=== PATIENT | female | born 1985 | race Asian ===

== ENCOUNTER 2018-09-05 20:17 | Inpatient (IN) | payer OTHER ==
[2018-09-05 22:09] VITALS: BMI 20.5
--- NOTE | 2018-09-06 00:21 | HP ---
"COWS - Scale Resting Pulse: 1= CO 81-100 Sweatin=Flushed/Facial Moisture Restless Observation: 0= Sits Still Pupil Size: 2= Moderately Dilated (Pupils = 7 mm) Bone or Joint Aches: 0= None Runny Nose/ Eye Tearin= Runny Nose/Eyes GI Upset > 30mins: 0= None Tremor Observation: 2= Slight Tremor Visible Yawning Observation: 0= None Anxiety or Irritability: 4=Extreme Anxiety Goose Flesh Skin: 0=Smooth Skin COWS Score: 13 CIWA Score - Admission Criteria [facility] Guidelines: Admission for Medically Managed Detox: Requires at least one of the followin. CIWA greater than 12 2. Seizures within the past 24 hours 3. Delirium tremens within the past 24 hours 4. Hallucinations within the past 24 hours 5. Acute intervention needed for co occurring medical disorder 6. Acute intervention needed for co occurring psychiatric disorder 7. Severe withdrawal that cannot be handled at a lower level of care (continued vomiting, continued diarrhea, abnormal vital signs) requiring intravenous medication and/or fluids 8. Admission ROS [facility] Chief Complaint: Here w/ opiate withdrawal. Allergies/Adverse Reactions: Allergies Allergy/AdvReac Type Severity Reaction Status Date / Time No Known Allergies Allergy Verified 09/05/18 21:43 History of Present Illness: Here to detox from heroin. No prior detox history. Heroin use began at age 30. Uses intranasal. States increased to 2 bundles about 5 months ago. No Narcan Kit at home but willing to accept upon discharge. Alcohol use since age 14. Drinks 3-4 x/wk. Nicotine use began at age 23. Denies seizures or overdoses. PMHx: DM, Frequent burning w/ urination MHHx: Anxiety, insomnia. Denies depression. Denies thoughts of harming self or others. Search Terms: Pati Hand, 1985 Search Date: 09/06/2018 12:19:07 AM The Drug Utilization Report below displays all of the controlled substance prescriptions, if any, that your patient has filled in the last twelve months. The information displayed on this report is compiled from pharmacy submissions to the Department, and accurately reflects the information as submitted by the pharmacies. This report was requested by: Alissa Paul | Reference #: [id number] There are no results for the search terms that you entered. Exam Limitations: No Limitations - Ebola screening Have you traveled outside of the country in the last 21 days: No (N) Have you had contact with anyone from an Ebola affected area: No Do you have a fever: No - Review of Systems Constitutional: Diaphoresis, Changes in sleep (Difficulty falling and staying asleep - occ Xanax use.) EENT: reports: Blurred Vision, Nose Congestion Respiratory: reports: No Symptoms reported Cardiac: reports: No Symptoms Reported GI: reports: No Symptoms Reported : reports: Burning (Chronic burning w/ urination - taking cranberries.) Musculoskeletal: reports: Muscle Pain (r/t diabetes) Integumentary: reports: No Symptoms Reported Neuro: reports: Tremors Endocrine: reports: Increased Thirst, Increased Urine Hematology: reports: No Symptoms Reported Psychiatric: reports: Judgement Intact, Orientated x3, Anxious Patient History - PPD History Previous Implant?: Yes Documented Results: Negative w/proof Implanted On Prior R Admission?: Yes PPD to be Administered?: Yes - Reproductive History Patient is a Female of Child Bearing Age (11 -55 yrs old): Yes Last Menstrual Period: 08/16/18 Patient : No - Smoking Cessation Smoking history: Current every day smoker Have you smoked in the past 12 months: Yes Aproximately how many cigarettes per day: 20 Hx Chewing Tobacco Use: No Initiated information on smoking cessation: Yes 'Breaking Loose' booklet given: 09/06/18 - Substance & Tx. History Hx Alcohol Use: Yes Hx Substance Use: Yes Substance Use Type: Alcohol, Heroin Hx Substance Use Treatment: No - Substances abused Heroin Substance route: Inhalation Frequency: Daily Amount used: 2 bundles Age of first use: 30 Date of last use: 09/05/18 Alcohol Substance route: Oral Frequency: 3-6 times per week Amount used: it depends/ 4 beers/ shots whiskey Age of first use: 14 Date of last use: 09/03/18 Admission Physical Exam BHS - Vital Signs Vital Signs: Vital Signs - 24 hr 09/05/18 09/05/18 21:55 22:53 Temperature 99.4 F 99.4 F Pulse Rate 98 H 98 H Respiratory 16 16 Rate Blood Pressure 111/76 111/76 - Physical General Appearance: Yes: Appropriately Dressed, Mild Distress, Tremorous, Sweating (Increased facial mositure), Anxious HEENTM: Yes: EOMI, Normocephalic, Normal Voice, JACQUELINE (Pupils = 7 mm), Pharynx Normal Respiratory: Yes: Lungs Clear, Normal Breath Sounds, No Respiratory Distress Neck: Yes: No masses,lesions,Nodules, Supple Breast: Yes: Breast Exam Deferred Cardiology: Yes: Regular Rhythm, S1, S2 Abdominal: Yes: Non Tender, Flat, Soft, Increased Bowel Sounds Genitourinary: Yes: Within Normal Limits Back: Yes: Normal Inspection Musculoskeletal: Yes: full range of Motion, Gait Steady Extremities: Yes: Normal Capillary Refill, Tremors Neurological: Yes: metal coater II-XII NML intact, Alert, Motor Strength 5/5 Integumentary: Yes: Normal Color, Dry (Decreased skin turgor), Warm, Diaphoresis (Increased facial moisture) Lymphatic: Yes: Within Normal Limits - Diagnostic (1) Opioid dependence with withdrawal Current Visit: Yes Status: Acute (2) Diabetes Current Visit: Yes Status: Chronic Qualifiers: Diabetes mellitus type: type 1 Diabetes mellitus complication status: without complication Qualified Code(s): E10.9 - Type 1 diabetes mellitus without complications (3) Uncomplicated alcohol dependence Current Visit: Yes Status: Chronic (4) Nicotine dependence, uncomplicated Current Visit: Yes Status: Chronic Qualifiers: Nicotine product type: cigarettes Qualified Code(s): F17.210 - Nicotine dependence, cigarettes, uncomplicated (5) Burning with urination Current Visit: Yes Status: Chronic Comment: Usually takes cranberries or herbal meds Cleared for Admission S - Detox or Rehab [facility] Level of Care: Medically Managed Detox Regimen/Protocol: Methadone Breathalyzer - Breathalyzer Breathalyzer: 0 Urine Drug Screen - Test Device Lot number: [id number] Expiration date: 04/28/20 - Control Is test valid?: Yes - Results Drug screen NEGATIVE: No Urine drug screen results: FEN-Fentanyl, MOP-Opiates Inpatient Rehab Admission - Rehab Decision to Admit Inpatient rehab admission?: No"
[2018-09-06] MEDS ORDERED: MAG HYDROX/AL HYDROX/SIMETH 30 ML UNIT-DOSE CUP PO PRN (01:09)
[2018-09-06] MEDS ORDERED: MENTHOL/PHENOL 1 EACH UD MM PRN (01:09)
[2018-09-06] MEDS ORDERED: PROCHLORPERAZINE MALEATE 5 MG TABLET PO PRN (01:09)
[2018-09-06] MEDS ORDERED: IBUPROFEN 400 MG TABLET (FP) PO PRN (01:09)
[2018-09-06] MEDS ORDERED: NALOXONE HCL 0.4 MG/ML VIAL IVPUSH PRN (01:09)
[2018-09-06] MEDS ORDERED: MELATONIN 5 MG TABLETS PO PRN (01:09)
[2018-09-06] MEDS ORDERED: cloNIDine HCL 0.1 MG TABLET PO PRN (01:09)
[2018-09-06] MEDS ORDERED: P-EPHED 60MG/TRIPROLIDI 2.5MG TABLET PO PRN (01:09)
[2018-09-06] MEDS ORDERED: BISMUTH SUBSALICYLATE 524 MG/30 ML UD PO PRN (01:09)
[2018-09-06] MEDS ORDERED: NICOTINE POLACRILEX 2 MG GUM BUC PRN (01:09)
[2018-09-06] MEDS ORDERED: ACETAMINOPHEN 325 MG TABLET (FP) PO PRN ×2 (01:09)
[2018-09-06] MEDS ORDERED: guaiFENesin 200 MG/10 ML 10 ML UNIT-DOSE CUPS PO PRN (01:09)
[2018-09-06] MEDS ORDERED: MAGNESIUM HYDROX 2400MG/30ML ORAL SUSPENSION 30 ML CUP PO PRN (01:09)
[2018-09-06] MEDS ORDERED: METHOCARBAMOL 500 MG TABLET PO PRN (01:09)
[2018-09-06] MEDS ORDERED: MAGNESIUM CITRATE 300 ML BOTTLE PO PRN (01:09)
[2018-09-06] MEDS ORDERED: traZODone HCL 50 MG TABLET (FP) PO PRN (01:09)
[2018-09-06] MEDS ORDERED: METHADONE HCL 10 MG TABLET (FOR DETOX USE ONLY) PO ONE ×2 (01:15→10:00)
[2018-09-06] MEDS: diazePAM 5 MG TABLET PO PRN ×3 (02:37→17:14)
[2018-09-06] MEDS ORDERED: INSULIN SLIDING SCALE (NOVOLOG) 1 VIAL SQ ONE ×3 (07:34→17:01)
[2018-09-06] MEDS: INSULIN (NOVOLOG) ASPART 100 UNITS/ML 10ML VIAL SQ SCH ×3 (07:36→17:14)
[2018-09-06] MEDS: NICOTINE 21 MG/24 HOURS TOPICAL PATCH TD SCH (10:49)
[2018-09-06] MEDS: PRENATAL VITAMINS W/ FOLIC ACID TABLET (FP) PO SCH (10:49)
[2018-09-06] MEDS: LACTOBACILLUS ACIDOPHILUS 1 TABLET PO SCH ×3 (10:50→23:17)
--- NOTE | 2018-09-06 11:38 | PN ---
BHS COWS - Scale Resting Pulse: 0= [place] 80 or Below Sweatin=Flushed/Facial Moisture Restless Observation: 1= Difficult to Sit Still Pupil Size: 0= Normal to Room Light Bone or Joint Aches: 2= Severe Diffuse Aches Runny Nose/ Eye Tearin= Runny Nose/Eyes GI Upset > 30mins: 0= None Tremor Observation of Outstretched Hands: 2= Slight Tremor Visible Yawning Observation: 2= >3x During Session Anxiety or Irritability: 2=Irritable/Anxious Goose Flesh Skin: 0=Smooth Skin COWS Score: 13 BHS Progress Note (SOAP) Subjective: teary eyes running nose/nasal congestion sweats shakes interrupted sleep body aches irritable Objective: 09/06/18 11:37 Vital Signs Temperature 97.7 F 09/06/18 09:03 Pulse Rate 76 09/06/18 09:03 Respiratory Rate 18 09/06/18 09:03 Blood Pressure 113/77 09/06/18 09:03 O2 Sat by Pulse Oximetry (%) Laboratory Tests 09/06/18 09/06/18 00:06 06:37 POC Glucometer 137 272 labs pending aaox3 ambulating no acute distress Assessment: 09/06/18 11:37 withdrawal sx Plan: continue detox increase fluids
[2018-09-06] MEDS ORDERED: DICYCLOMINE HCL 10 MG CAPSULE PO PRN (14:50)
[2018-09-06] MEDS ORDERED: TRIMETHOBENZAMIDE HCL 200MG/2ML INJ IM PRN (14:50)
[2018-09-06] MEDS: THIAMINE HCL 100 MG TABLET (FP) PO SCH (23:03)
[2018-09-07] MEDS: diazePAM 5 MG TABLET PO PRN ×2 (00:56→22:28)
[2018-09-07] MEDS: INSULIN (NOVOLOG) ASPART 100 UNITS/ML 10ML VIAL SQ SCH ×3 (07:57→17:41)
[2018-09-07 10:12] LABS: HEMATOCRIT 49.8 % (32.4-45.2); HEMOGLOBIN 16.7 GM/dL (10.7-15.3); MCH 32.8 pg (25.7-33.7); MCHC 33.5 g/dl (32.0-36.0); MEAN PLT VOLUME 8.8 fl (7.5-11.1); PLATELET COUNT 262 K/MM3 (134-434); RBC 5.08 M/mm3 (3.60-5.2); RDW 13.4 % (11.6-15.6)
[2018-09-07 10:32] LABS: ALBUMIN 4.3 g/dl (3.4-5.0); ALK PHOS 46 U/L (45-117); ANION GAP 8 MMOL/L (8-16); BILIRUBIN,TOTAL 1.4 mg/dL (0.2-1); BLOOD UREA NITROGEN 19 mg/dL (7-18); CALCIUM 9.1 mg/dL (8.5-10.1); CHLORIDE 97 mmol/L (98-107); CO2 29 mmol/L (21-32); CREATININE 0.7 mg/dL (0.55-1.3); GLUCOSE,RANDOM 228 mg/dL (74-106); POTASSIUM 4.2 mmol/L (3.5-5.1); SGOT/AST 17 U/L (15-37); SGPT/ALT 18 U/L (13-61); SODIUM 134 mmol/L (136-145)
[2018-09-07] MEDS: PRENATAL VITAMINS W/ FOLIC ACID TABLET (FP) PO SCH (10:41)
[2018-09-07] MEDS: LACTOBACILLUS ACIDOPHILUS 1 TABLET PO SCH ×2 (10:41→22:28)
[2018-09-07] MEDS: METHADONE HCL 10 MG TABLET (FOR DETOX USE ONLY) PO ONE ×2 (10:41→12:12)
[2018-09-07] MEDS: NICOTINE 21 MG/24 HOURS TOPICAL PATCH TD SCH (10:41)
--- NOTE | 2018-09-07 11:20 | PN ---
S CIWA - CIWA Score Nausea/Vomitin-No Nausea/No Vomiting Muscle Tremors: 3 Anxiety: 3 Agitation: 4-Moderately Restless Paroxysmal Sweats: 3 Orientation: 0-Oriented Tacttile Disturbances: 0-None Auditory Disturbances: 0-None Visual Disturbances: 0-None Headache: 0-None Present CIWA-Ar Total Score: 13 BHS Progress Note (SOAP) Subjective: body aches interrupted sleep sweats tired Objective: 09/07/18 11:19 Vital Signs Temperature 97.9 F 09/07/18 09:22 Pulse Rate 83 09/07/18 09:22 Respiratory Rate 18 09/07/18 09:22 Blood Pressure 121/76 09/07/18 09:22 O2 Sat by Pulse Oximetry (%) Laboratory Tests 09/06/18 09/06/18 09/06/18 00:06 06:37 12:25 WBC RBC Hgb Hct MCV MCH MCHC RDW Plt Count MPV Sodium Potassium Chloride Carbon Dioxide Anion Gap BUN Creatinine Creat Clearance w eGFR POC Glucometer 137 272 266 Random Glucose Calcium Total Bilirubin AST ALT Alkaline Phosphatase Total Protein Albumin 09/06/18 09/07/18 09/07/18 16:24 06:09 07:00 WBC 11.0 H RBC 5.08 Hgb 16.7 H Hct 49.8 H MCV 98.0 H MCH 32.8 MCHC 33.5 RDW 13.4 Plt Count 262 MPV 8.8 Sodium Potassium Chloride Carbon Dioxide Anion Gap BUN Creatinine Creat Clearance w eGFR POC Glucometer 200 236 Random Glucose Calcium Total Bilirubin AST ALT Alkaline Phosphatase Total Protein Albumin 09/07/18 09/07/18 07:00 11:17 WBC RBC Hgb Hct MCV MCH MCHC RDW Plt Count MPV Sodium 134 L Potassium 4.2 Chloride 97 L Carbon Dioxide 29 Anion Gap 8 BUN 19 H Creatinine 0.7 Creat Clearance w eGFR 96.37 POC Glucometer 239 Random Glucose 228 H Calcium 9.1 Total Bilirubin 1.4 H AST 17 ALT 18 Alkaline Phosphatase 46 Total Protein 8.0 Albumin 4.3 aaox3 ambulating no acute distress Assessment: 09/07/18 11:20 withdrawal sx Plan: continue detox increase fluids
--- NOTE | 2018-09-07 11:25 | PN ---
[facility] Progress Note Note: pt had contraband on her person. Pt states she brought her vape inhaler,eye liner, and supervisor hide house. security, medical staff, nursing salon supervisor was made aware of the issue and approached the patient with the items. Pt states she brought it up when she came up the other day. Items removed from her room by security.
[2018-09-07] MEDS ORDERED: INSULIN SLIDING SCALE (NOVOLOG) 1 VIAL SQ ONE ×2 (11:30→17:05)
[2018-09-07] MEDS ORDERED: METHADONE DETOX 10 MG/1 ML [20ML VIAL] IM ONE ×2 (11:32)
--- NOTE | 2018-09-07 16:39 | EKG ---
Test Reason : Blood Pressure : / mmHG Vent. Rate : 070 BPM Atrial Rate : 070 BPM P-R Int : 160 ms QRS Dur : 084 ms QT Int : 396 ms P-R-T Axes : 051 -36 021 degrees QTc Int : 427 ms NORMAL SINUS RHYTHM LEFT AXIS DEVIATION ABNORMAL ECG NO PREVIOUS ECGS AVAILABLE Confirmed by TESS DELGADO, KODY ([id number]) on 09/07/2018 4:39:05 PM Referred By: Confirmed By:KODY PULIDO MD
[2018-09-07 17:10] LABS: PH,URINE 6.5 (5.0-8.0); URINE APPEARANCE CLOUDY; URINE BILIRUBIN NEGATIVE (NEGATIVE); URINE COLOR YELLOW; URINE GLUCOSE (UA) 3+ (NEGATIVE); URINE KETONE NEGATIVE (NEGATIVE); URINE LEUK ESTERASE NEGATIVE (NEGATIVE); URINE NITRITE NEGATIVE (NEGATIVE); URINE PROTEIN NEGATIVE (NEGATIVE); URINE UROBILINOGEN 0.2 mg/dL (0.2-1.0)
[2018-09-07] MEDS: THIAMINE HCL 100 MG TABLET (FP) PO SCH (22:22)
[2018-09-08] MEDS ORDERED: INSULIN SLIDING SCALE (NOVOLOG) 1 VIAL SQ ONE (07:50)
[2018-09-08] MEDS: INSULIN (NOVOLOG) ASPART 100 UNITS/ML 10ML VIAL SQ SCH ×3 (07:57→17:37)
[2018-09-08] MEDS ORDERED: METHADONE HCL 10 MG TABLET (FOR DETOX USE ONLY) PO ONE (10:00)
[2018-09-08] MEDS: LACTOBACILLUS ACIDOPHILUS 1 TABLET PO SCH (12:09)
[2018-09-08] MEDS: PRENATAL VITAMINS W/ FOLIC ACID TABLET (FP) PO SCH (12:09)
[2018-09-08] MEDS: NICOTINE 21 MG/24 HOURS TOPICAL PATCH TD SCH (12:10)
[2018-09-08] MEDS ORDERED: hydrOXYzine PAMOATE 50 MG CAPSULE (FP) PO PRN (12:29)
--- NOTE | 2018-09-08 12:47 | CONSULT ---
[facility] Psychiatric Consult - Data Date of interview: 09/08/18 Admission source: [facility] Identifying data: Patient is a 33 year old single female, without children, unemployed, and resides with boyfriend. This is patient's first admission to detox at [facility]. Patient admitted to for opiate dependence. Substance Abuse History: Smoking Cessation. Smoking history: Current every day smoker. Have you smoked in the past 12 months: Yes. Aproximately how many cigarettes per day: 20. Hx Chewing Tobacco Use: No. Initiated information on smoking cessation: Yes. 'Breaking Loose' booklet given: 09/06/18. - Substance & Tx. History. Hx Alcohol Use: Yes. Hx Substance Use: Yes. Substance Use Type : Alcohol, Heroin. Hx Substance Use Treatment: No. - Substances abused. Heroin. Substance route: Inhalation. Frequency: Daily. Amount used: 2 bundles. Age of first use: 30. Date of last use: 09/05/18. Alcohol. Substance route: Oral. Frequency: 3-6 times per week. Amount used: it depends / 4 beers/ shots whiskey. Age of first use: 14. Date of last use: 09/03/18 Medical History: DM, Frequent burning w/ urination Psychiatric History: Patient denies h/o psychiatric hospitalization, outpatient care, and suicide attempt. Assessment for suicidality: Psychiatric consultation ordered after patient stated " I want to hurt myself." Upon approach patient appeared to be frustrated, irritable and agitated. Patient stated to process description writer " I only said that i was suicidal because i am anxious and i feel like shit and i need valium". Patient encouraged to speak to process description writer in his office which she was able to do so. While in the office patient was less irritable and able to speak to process description writer at a normal tone. Patient reported frustration from her opioid detox. She reported to process description writer, " I feel like shit. I am not suicidal. I said it because i needed someones's attention. I would never hurt myself. I have a place to live and a boyfriend that cares about me." Patient does not present with suicidal ideations. Patient has no prior suicide attempt. Psychiatric transfer is not needed at this time. Patient does not need to be on 1:1 observation. Will order Vistaril 50mg q6h for anxiety. Patient satisifed and receptive to feedback. Physical/Sexual Abuse/Trauma History: denies. Mental Status Exam - Mental Status Exam Alert and Oriented to: Time, Place, Person Cognitive Function: Good Patient Appearance: Unkempt Mood: Irritable Affect: Mood Congruent Patient Behavior: Agitated (Patient agitated while speaking to staff but able to de escalate her frustration while speaking to process description writer in the office. ) Speech Pattern: Clear Voice Loudness: Normal, Mildly Loud Thought Process: Goal Oriented Thought Disorder: Not Present Hallucinations: Denies Suicidal Ideation: Denies Homicidal Ideation: Denies Insight/Judgement: Poor Sleep: Poorly Appetite: Fair Muscle strength/Tone: Normal Gait/Station: Normal Psychiatric Findings - Problem List ([place] 1, 2,3) (1) Substance induced mood disorder Current Visit: Yes Status: Acute (2) Opioid dependence with withdrawal Current Visit: Yes Status: Acute (3) Nicotine dependence, uncomplicated Current Visit: Yes Status: Chronic Qualifiers: Nicotine product type: cigarettes Qualified Code(s): F17.210 - Nicotine dependence, cigarettes, uncomplicated (4) Personality disorder Current Visit: Yes Status: Suspected - Initial Treatment Plan Initial Treatment Plan: Psychoeducation provided. Detoxification in progress. Trazodone 50mg qhs ordered for insomnia and vistaril 50mg q6h for anxiety. Benefits and side effects discussed. Verbal consent given. 1:1 observation and psychiatric transfer is not needed at this time. Observation.
--- NOTE | 2018-09-08 14:03 | PN ---
BHS Progress Note (SOAP) Subjective: irritable sweats body aches stomach cramp depressed Objective: 09/08/18 14:02 Vital Signs Temperature 98.8 F 09/08/18 09:22 Pulse Rate 71 09/08/18 09:22 Respiratory Rate 20 09/08/18 09:22 Blood Pressure 118/70 09/08/18 09:22 O2 Sat by Pulse Oximetry (%) aaox3 ambulating no acute distress Assessment: 09/08/18 14:02 withdrawal sx Plan: continue detox increase fluids psych consult ordered
[2018-09-08] MEDS: diazePAM 5 MG TABLET PO PRN (20:25)
[2018-09-08 21:53] VITALS: BP 93/69; PULSE 96; TEMP 97.9
[2018-09-08] MEDS ORDERED: traZODone HCL 50 MG TABLET (FP) PO SCH (22:00)
--- NOTE | 2018-09-08 22:06 | PN ---
[facility] Progress Note Note: Patient alert and oriented. Gait steady. Vital Signs 09/08/18 09/08/18 18:29 21:51 Temperature 98.1 F 97.9 F Pulse Rate 71 96 H Respiratory 16 18 Rate Blood Pressure 121/80 93/69 Discussed the benefits of staying an additional day to avoid the risks of acute withdrawal. Patient insists on leaving. States the bulk of her withdrawal is completed and she feels she will be fine and her fiance was waiting to pick her up. Discussed potential relapse and overdose risks and states will not use, but consents to a Narcan Kit sent to home pharmacy. Patient to remain on unit until 2 hours after last Valium (received at 20;25)to ensure no sedative side effects. Patient left unit ambulatory and in NAD.
--- NOTE | 2018-09-08 22:14 | DS ---
[facility] Detox Discharge Summary Admission Date: 09/05/18 Discharge Date: 09/08/18 - History Present History: Opioid Dependence Additional Comments: Admitted with opioid withdrawal. Pertinent Past History: First detox admission. Heroin use began at age 30. Alcohol use since age 14. Nicotine use began at age 23. Hx DM- insulin dependent. - Physical Exam Results Vital Signs: Vital Signs Temperature 97.9 F 09/08/18 21:51 Pulse Rate 96 H 09/08/18 21:51 Respiratory Rate 18 09/08/18 21:51 Blood Pressure 93/69 09/08/18 21:51 O2 Sat by Pulse Oximetry (%) Pertinent Admission Physical Exam Findings: Admitted with opiate withdrawal symptoms. Laboratory Last Values WBC 11.0 K/mm3 (4.0-10.0) H 09/07/18 07:00 RBC 5.08 M/mm3 (3.60-5.2) 09/07/18 07:00 Hgb 16.7 GM/dL (10.7-15.3) H 09/07/18 07:00 Hct 49.8 % (32.4-45.2) H 09/07/18 07:00 MCV 98.0 fl (80-96) H 09/07/18 07:00 MCH 32.8 pg (25.7-33.7) 09/07/18 07:00 MCHC 33.5 g/dl (32.0-36.0) 09/07/18 07:00 RDW 13.4 % (11.6-15.6) 09/07/18 07:00 Plt Count 262 K/MM3 (134-434) 09/07/18 07:00 MPV 8.8 fl (7.5-11.1) 09/07/18 07:00 Sodium 134 mmol/L (136-145) L 09/07/18 07:00 Potassium 4.2 mmol/L (3.5-5.1) 09/07/18 07:00 Chloride 97 mmol/L (98-107) L 09/07/18 07:00 Carbon Dioxide 29 mmol/L (21-32) 09/07/18 07:00 Anion Gap 8 MMOL/L (8-16) 09/07/18 07:00 BUN 19 mg/dL (7-18) H 09/07/18 07:00 Creatinine 0.7 mg/dL (0.55-1.3) 09/07/18 07:00 Creat Clearance w eGFR 96.37 (>60) 09/07/18 07:00 POC Glucometer 253 UNITS (80-120) 09/08/18 16:48 Random Glucose 228 mg/dL (74-106) H 09/07/18 07:00 Calcium 9.1 mg/dL (8.5-10.1) 09/07/18 07:00 Total Bilirubin 1.4 mg/dL (0.2-1) H 09/07/18 07:00 AST 17 U/L (15-37) 09/07/18 07:00 ALT 18 U/L (13-61) 09/07/18 07:00 Alkaline Phosphatase 46 U/L (45-117) 09/07/18 07:00 Total Protein 8.0 g/dl (6.4-8.2) 09/07/18 07:00 Albumin 4.3 g/dl (3.4-5.0) 09/07/18 07:00 Urine Color Yellow 09/07/18 12:20 Urine Appearance Cloudy 09/07/18 12:20 Urine pH 6.5 (5.0-8.0) 09/07/18 12:20 Ur Specific [place] 1.027 (1.010-1.035) 09/07/18 12:20 Urine Protein Negative (NEGATIVE) 09/07/18 12:20 Urine Glucose (UA) 3+ (NEGATIVE) H 09/07/18 12:20 Urine Ketones Negative (NEGATIVE) 09/07/18 12:20 Urine Blood Negative (NEGATIVE) 09/07/18 12:20 Urine Nitrite Negative (NEGATIVE) 09/07/18 12:20 Urine Bilirubin Negative (NEGATIVE) 09/07/18 12:20 Urine Urobilinogen 0.2 mg/dL (0.2-1.0) 09/07/18 12:20 Ur Leukocyte Esterase Negative (NEGATIVE) 09/07/18 12:20 RPR Titer Nonreactive (NONREACTIVE) 09/07/18 07:00 Labs reviewed. - Treatment Hospital Course: Detox Protocol Followed (Did not complete protocol), Discharged Condition Good (Alert and oriented upon discharge.) - Medication Discharge Medications: Ambulatory Orders NovoLOG - 8 units SQ TID 04/09/19 Naloxone HCl [Narcan] 4 mg NS PRN #1 spray 09/06/18 Insulin (Novolog) [Novolog -] 8 units SQ TIDAC #1 units 09/09/18 - Diagnosis (1) Opioid dependence with withdrawal Status: Acute (2) Diabetes Status: Chronic Qualifiers: Diabetes mellitus type: type 1 Diabetes mellitus complication status: without complication Qualified Code(s): E10.9 - Type 1 diabetes mellitus without complications (3) Uncomplicated alcohol dependence Status: Chronic (4) Nicotine dependence, uncomplicated Status: Chronic Qualifiers: Nicotine product type: cigarettes Qualified Code(s): F17.210 - Nicotine dependence, cigarettes, uncomplicated (5) Burning with urination Status: Chronic - AMA Did Patient Leave Against Medical Advice: Yes
[2018-09-09] MEDS ORDERED: METHADONE HCL 10 MG TABLET (FOR DETOX USE ONLY) PO ONE (10:00)
[2018-09-10] MEDS ORDERED: METHADONE HCL 5 MG TABLET (FOR DETOX USE ONLY) PO ONE (06:00)
== END 2018-09-08 22:10 | disposition left against medical advice (07) | DRG 770 ==
LOC: YASAS 20:17 → Y6N 23:56
PROVIDERS: ADMIT Surgery; ATTEND Surgery
PROC: HZ2ZZZZ Detoxification Services for Substance Abuse Treatment (ICD-10-PCS; principal; 2018-09-05)
DX: F11.23 Opioid dependence with withdrawal (principal); F10.20 Alcohol dependence, uncomplicated; F17.210 Nicotine dependence, cigarettes, uncomplicated; F19.24 Other psychoactive substance dependence with psychoactive substance-induced mood disorder; F60.9 Personality disorder, unspecified; R30.0 Dysuria; E10.9 Type 1 diabetes mellitus without complications; Z79.4 Long term (current) use of insulin
CPT/HCPCS: 36415; 80053; 81003; 82962; 85027; 86593; 93005; 93010; J0735